=== PATIENT | female | born 1990 | race American Indian/Alaskan Native ===

== ENCOUNTER 2019-06-21 10:21 | Outpatient (CLI) | payer MEDICAID ==
[2019-06-21 12:40] VITALS: BP 116/58
== END 2019-06-21 13:23 | disposition home or self-care (01) ==
LOC: TRG 10:21
PROVIDERS: ATTEND Obstetrics & Gynecology
DX: O47.1 False labor at or after 37 completed weeks of gestation (principal); Z3A.38 38 weeks gestation of pregnancy
CPT/HCPCS: 59025